=== PATIENT | male | born 1975 | race Caucasian/White ===

== ENCOUNTER 2018-02-03 10:51 | Emergency (ER) | payer MEDICAID, SELFPAY ==
[2018-02-03 10:52] VITALS: BP 134/91; PULSE 73; RESP 18; TEMP 36.2; O2SAT 99; BMI 19.2
--- NOTE | 2018-02-03 11:20 | ED.VISSUMM ---
- ER Visit Summary Date of Service: 02/03/18 Chief Complaint: [Neck and back pain] History of Present Illness: The patient is a 42 M [that presents with intermittent neck and back pain for 4 months. He started a new job yesterday and he feels that made the symptoms worse. He describes left-sided neck pain that at times shoots down his left arm. Denies any fall or trauma. No bowel or bladder incontinence or retention. No symptoms of saddle anesthesia. He does not take any blood thinning medications. He denies any fever, neck stiffness, rash, or recent illness. He overall appears well and nontoxic. He is not yet taking any medications for the pain. He does not currently follow with a primary provider. He does have a history of prior DJD he states. He has no other complaints.] Physical Examination: [General: The patient appears well and in no apparent distress. Patient is resting comfortably on cart. Skin: Warm, dry, no pallor noted. No rash. Head: Normocephalic, atraumatic Neck: Supple, no mild tenderness. Left paraspinal tenderness only. Range of motion within normal limits.. ENT: Moist mucus membranes, pharynx within normal limits. Cardiovascular: Regular Rate and Rhythm, no gallups or rubs Respiratory: Patient is in no distress, no accessory muscle use, lungs are clear to auscultation, no wheezing, rales or rhonchi Musculoskeletal: normal ROM, no deformity, no tenderness, no swelling. 2+ radial and DP pulses symmetric. All compartments are soft. Tenderness over the left thoracic paraspinal trapezius region. No spinal tenderness of the back. Back overall normal to inspection. GI: No tenderness to palpation, no masses appreciated. No rebound, guarding, or rigidity noted. Neurological: A&O, normal strength and sensation. 5/5 bilateral upper extremity strength intact. Psychiatric: Cooperative] Test Results: [] Emergency Department Course and Treatment: [I do not feel patient requires imaging at this time. He denies any fall or trauma. I will give him a referral to an outpatient primary care provider as he likely needs further evaluation with possible outpatient MRI imaging and probable physical therapy. He was provided Flexeril and Naprosyn here and will be given prescriptions for these. He was instructed to return with any new or worsening symptoms. Patient and family understand and are agreeable with this plan of care. He will be provided a work note for today. Patient discharged home in stable condition.] Treatment Plan: [See Above] Disposition: [Discharged home, stable condition] Impression: [Acute cervical strain, radiculopathy] This note was generated with [employer] dictation software. It may contain incorrect words, spelling, and punctuation that were not noted in review of the chart prior to signing ED Disposition - Plan for ED Patient: Disposition: Home or Assisted Living Chief Complaint: Back Instructions: ED Neck Back Pain General Prescriptions: Naproxen [Naprosyn] 500 mg PO BID PRN #20 tab Cyclobenzaprine [Flexeril] 10 mg PO TID PRN #20 tab PRN Reason: Muscle Spasm Referrals: Mello Maya MD [STAFF PHYSICIAN] -
[2018-02-03] MEDS: Naproxen 500 MG Tablet PO (11:27)
== END 2018-02-03 12:00 | disposition home or self-care (01) ==
LOC: ED 11:37
PROVIDERS: Emergency Provider Emergency Medicine
DX: S16.1XXA Strain of muscle, fascia and tendon at neck level, initial encounter (principal); X58.XXXA Exposure to other specified factors, initial encounter; Y93.9 Activity, unspecified; Y92.89 Other specified places as the place of occurrence of the external cause; Y99.9 Unspecified external cause status; M54.10 Radiculopathy, site unspecified; M19.90 Unspecified osteoarthritis, unspecified site; Z72.0 Tobacco use
CPT/HCPCS: 99283

== ENCOUNTER 2020-09-30 09:44 | Emergency (ER) | payer MEDICAID, SELFPAY ==
[2020-09-30 09:46] VITALS: BP 161/100; PULSE 95; RESP 16; TEMP 36.6; O2SAT 97; BMI 19.3
--- NOTE | 2020-09-30 10:01 | RAD_ITS ---
STUDY: X-RAY - RIGHT KNEE REASON FOR EXAM: Right knee pain, right knee injury last February. TECHNIQUE: 4 view(s) of the knee. COMPARISON: None. FINDINGS: Normal visualized distal femur. Normal visualized proximal tibia and fibula. Normal proximal tibiofibular articulation. Normal medial femorotibial compartment. Normal lateral femorotibial compartment. Normal patellofemoral articulation. The soft tissue structures are unremarkable. RAD/Knee 4 or More Views IMPRESSION: Normal x-ray examination of the right knee. Electronically Signed: Juve Ozuna MD at 10:18 EDT Tel , Service support ,
--- NOTE | 2020-09-30 10:23 | ED.VISSUMM ---
- ER Visit Summary Date of Service: 09/30/20 Chief Complaint: Right knee pain History of Present Illness: The patient is a 44 M with no primary care physician. Reports that in February 2020 he slipped on a wet rock and landed on his right knee. States that it was swollen, but 2 days later the swelling and pain improved. However, he has had continual pain since then. He has not seen a doctor. He has not had x-rays. Patient reports that he is a sharp pain is 8 out of 10 at worst and 5 out of 10 currently. Is worsened by sleeping and relieved by walking around. He denies any numbness or weakness. Physical Examination: Vitals: Stable. Afebrile. General: Well-nourished and well-developed. Head: Normocephalic atraumatic. Neck: Supple, no lymphadenopathy. No JVD. Nontender. Cardiovascular: Regular rate and rhythm. No murmurs. Respiratory: No respiratory distress. Clear to auscultation bilaterally. Abdominal: Soft, nontender, nondistended, normal bowel sounds. No guarding, rebound, or peritoneal signs. Back: Nontender. Extremities: Right knee: No appreciable joint effusion. He has mild tenderness palpation over the lateral portion of his knee. Full range of motion without any difficulty. There is no overlying erythema or warmth to suggest a septic joint. He has no pain or ligamentous instability with anterior/posterior drawer or medial/lateral stress. He is neuro vas intact distal to this. Skin: Normal color, no rash. Neurologic: Alert and oriented ?3. Cranial nerves II through XII are intact. Normal strength and sensation. Psych: Normal affect. Test Results: Clinical Impression(s) from Imaging Studies Knee X-Ray 09/30/20 10:01 IMPRESSION: Normal x-ray examination of the right knee. Electronically Signed: Juve Ozuna MD at 10:18 EDT Tel , Service support , Emergency Department Course and Treatment: Patient refused pain medications. He is resting comfortably. Treatment Plan: Had a prolonged discussion the patient that he needs to follow-up with orthopedic surgery and have an MRI to rule out ligamentous or cartilaginous injury. He is instructed to ice. Use Tylenol and/or ibuprofen for pain. Return to the emergency department for any worsening symptoms. Disposition: To home in improved and stable condition. Impression: 1. Right knee pain, chronic. This note was generated with [employer] dictation software. It may contain incorrect words, spelling, and punctuation that were not noted in review of the chart prior to signing ED Disposition - Plan for ED Patient: Instructions: ED Knee Pain of Uncertain Cause Referrals: Arthur Bang DO [STAFF PHYSICIAN] - 1-2 Weeks
[2020-09-30 10:32] VITALS: BP 127/66; PULSE 59; RESP 17; O2SAT 99
== END 2020-09-30 10:41 | disposition home or self-care (01) ==
LOC: ED 10:39
PROVIDERS: Emergency Provider Emergency Medicine
DX: M25.561 Pain in right knee (principal); G89.29 Other chronic pain; W01.0XXA Fall on same level from slipping, tripping and stumbling without subsequent striking against object, initial encounter
CPT/HCPCS: 73564; 99282

== ENCOUNTER 2021-01-14 08:47 | Emergency (ER) | payer MEDICAID, SELFPAY ==
[2021-01-14 08:47] VITALS: BP 121/80; PULSE 82; RESP 18; TEMP 36; O2SAT 99
--- NOTE | 2021-01-14 09:10 | EDS_ITS ---
HPI History of Present Illness Chief Complaint: Back Informant: patient Narrative Narrative: 45-year-old male presents to the emergency room with back pain. Patient states that for the past 7 months he has been having lumbar back pain with numbness of the knee and pain going down the back of the leg. He saw [facility] and was referred to physical therapy. He states that he has been doing that but it is made his neck hurt. He states he has a plate in his neck and now has radicular symptoms to the bilateral arms. He was supposed to go to physical therapy today but he bent over to put his boots on he felt a pop in the lateral lower thoracic area along the ribs. He states that it made it to the point where he could not walk. He states he is having a difficult time being upright. He denies any bowel or bladder dysfunction. He is currently o nly taking Flexeril at night to help him sleep. He denies any new neurologic deficits. [facility] Medical History (Updated 01/14/21 @ 09:[address] Clement Marcial DO) Chronic back pain Home Medications cyclobenzaprine 10 mg PO TID PRN #20 tab 02/03/18 [Rx Last Taken Unknown] diazepam 5 mg PO Q8 PRN #15 tab 01/14/21 [Rx Last Taken Unknown] hydrocodone-acetaminophen 1 tab PO Q6H PRN PRN 3 Days #12 tablet 01/14/21 [Rx Last Taken Unknown] Allergy/AdvReac Type Severity Reaction Status Date / Time Penicillins Allergy Swelling Verified 01/14/21 08:51 Surgical History H/O neck surgery Hx of appendectomy Social History (Updated 01/14/21 @ 09:[address] Clement Marcial DO) Smoking Status: Current every day smoker tobacco type: cigarettes substance use type: does not use ROS ROS ED Constitutional Constitutional ED: Denies chills or weight loss Eyes Eyes: Denies change in vision or diplopia ENT ENT ED: Denies ear pain, rhinorrhea or sore throat Cardiovascular Cardiovascular: Denies chest pain, orthopnea, palpitations or racing heartbeat Respiratory/Chest Respiratory/Chest: Denies cough, dyspnea or orthopnea Gastrointestinal Gastrointestinal: Denies abdominal pain, diarrhea, nausea or vomiting Genitourinary Genitourinary ED: Denies dysuria, hematuria or urinary frequency Musculoskeletal Musculoskeletal: Reports back pain and neck pain; Denies arthralgias or myalgias Integumentary Denies abscess or rash Neurologic Neurologic: Reports other Details: Patient reports numbness to the knee bilateral arms ; Denies headache(s) or weakness Psychiatric Psychiatric: Denies anxiety, depression, suicidal ideation or suicidal thoughts Endocrine Endocrinology: Denies polydipsia, polyphagia or polyuria Allergic/Immunologic Allergic/Immunologic ED: Denies mouth swelling, tongue swelling or urticaria EXAM Physical Exam Const Vital Signs: 01/14/21 08:47 Temperature 96.8 F L Temperature Source Temporal Pulse Rate 82 Respiratory Rate 18 Blood Pressure 121/80 H Blood Pressure Mean 93 Pulse Ox 99 Oxygen Delivery Method Room Air Positive well nourished and well developed General Appearance ED: well developed HEENT Reports normocephalic, head/scalp atraumatic and moist mucous membranes Eyes PERRL and EOMs intact bilaterally Neck no lymphadenopathy, supple and no JVD Resp normal respiratory effort and clear to auscultation bilaterally Cardio regular rate, regular rhythm and no murmurs GI normal to inspection, nondistended, normoactive bowel sounds and non-tender Palpation: soft Back/Spine no CVA tenderness and normal ROM Back/Spine Narrative: Patient reports tenderness to palpation over the lower thoracic ribs. He does not have any midline tenderness. He sits on the side of the bed leaning slightly to the left. Painful range of motion. He does not appear to have any acute neurologic deficits. Extremity normal to inspection General Extremety ED: Negative for edema General Extremity: Negative for edema Neuro oriented x3 and CN's II-XII intact bilaterally Sensorium / Orientation: alert Motor Exam: strength 5/5 throughout Psych mental status grossly normal Mood & Affect: Negative for depressed or tearful Skin no rashes or lesions noted and no wounds MDM MDM MDM Narrative Medical decision making narrative: Patient will be treated here with a dose of IM I suspect that this is muscular in nature today. Would recommend that he follow-up with his doctors for further evaluation. Discharge Plan Triage Chief Complaint: Back ED Provider: Clement Marcial Dx/Rx/DC Orders Clinical Impression: Muscle spasm of back, Chronic back pain, Chronic lumbar radiculopathy, Chronic cervical radiculopathy Instructions: ED Back Spasm, No Trauma Prescriptions: New hydrocodone-acetaminophen [hydrocodone-acetaminophen] 1 TABLET tablet 1 tab PO Q6H PRN PRN (Reason: Pain) 3 Days Qty: 12 RF: 0 diazepam [diazepam] 5 MG tablet 5 mg PO Q8 PRN (Reason: Muscle Spasm) Qty: 15 RF: 0 No Action cyclobenzaprine 10 MG tablet 10 mg PO TID PRN (Reason: Muscle Spasm) Qty: 20 RF: 0 Primary Care Provider: Care Physician,No Primary Referrals: Arthur Bang DO [STAFF PHYSICIAN] - As soon as possible Care Physician,No Primary [Primary Care Provider] - Disposition Disposition: Home, Self Care
[2021-01-14] MEDS: morphine 10 MG/ML Syringe IM (09:30)
[2021-01-14] MEDS: diazePAM 5 MG Tablet PO (09:31)
[2021-01-14 09:52] VITALS: BP 105/75; PULSE 74; RESP 16; O2SAT 98
== END 2021-01-14 09:53 | disposition home or self-care (01) ==
PROVIDERS: Emergency Provider Emergency Medicine
DX: M54.9 Dorsalgia, unspecified (principal); G89.29 Other chronic pain; M54.12 Radiculopathy, cervical region; M54.16 Radiculopathy, lumbar region; F17.210 Nicotine dependence, cigarettes, uncomplicated; M62.830 Muscle spasm of back
CPT/HCPCS: 99283